=== PATIENT | female | born 1975 | race Caucasian/White ===

== ENCOUNTER 2017-02-18 11:27 | Emergency (ER) | payer MEDICAID ==
[2017-02-18 11:48] VITALS: BP 115/68
[2017-02-18] MEDS ORDERED: Sodium Chloride 0.9% 10 ML Syringe FLUSH PRN (11:59)
--- NOTE | 2017-02-18 12:13 | EDM.PDOC ---
ED HPI GENERAL MEDICAL PROBLEM - General Chief Complaint: Chest Pain Stated Complaint: CHEST PAIN Time Seen by Provider: 02/18/17 11:48 Source of Information: Reports: Patient History Limitations: Reports: No Limitations - History of Present Illness INITIAL COMMENTS - FREE TEXT/NARRATIVE: 41-year-old female presents for evaluation treatment of right-sided chest pain. Patient reports that the chest pain has been present for the last week and a half and is steadily worsening. She reports that it is located on the right side of her chest and radiates to her back. Worse with coughing, sneezing or movement. She reports that it first started when she was sleeping and woke her up from sleep. She states that she has having "a little bit " shortness of breath. She is also feeling more congested. No trauma or injury to the chest that she can think of. She reports associated symptoms of congestion, bilateral ear discomfort, nausea and a cough. She denies any fevers, chills, vomiting, sore throat, lymphadenopathy or abdominal pain. Patient reports that she has tried [id number] naproxen which was helping initially but her symptoms have persisted. Patient also reports that she's been experiencing "muscle cramps " in the lower legs. Had one in the left but mostly in the right leg. Right Chest Pain Score (Numeric/FACES): 5 - Related Data Allergies Allergy/AdvReac Type Severity Reaction Status Date / Time codeine Allergy Unknown Cannot Verified 02/18/17 11:48 Remember Home Meds: Home Meds . [No Known Home Meds] 02/18/17 [History] Past Medical History HEENT History: Reports: Impaired Vision [employer] History: Reports: Neurological History: Reports: Concussion, Head Trauma Psychiatric History: Reports: Hallucinations - Past Surgical History HEENT Surgical History: Reports: Eye Surgery Social & Family History - Family History Family Medical History: Noncontributory - Tobacco Use Smoking Status *Q: Current Every Day Smoker Years of Tobacco use: 22 Packs/Tins Daily: 0.2 - Caffeine Use Caffeine Use: Reports: Coffee, Soda - Alcohol Use Days Per Week of Alcohol Use: 7 Number of Drinks Per Day: 4 Total Drinks Per Week: 28 Date of Last Drink: 02/17/17 - Recreational Drug Use Recreational Drug Use: No Drug Use in Last 12 Months: Yes Recreational Drug Type: Reports: Marijuana/Hashish, Methamphetamine, Ecstasy Recreational Drug Use Frequency: Binges ED ROS GENERAL - Review of Systems Review Of Systems: See Below Constitutional: Denies: Fever, Chills HEENT: Reports: Ear Pain (bilateral), Other (reprots nasal congestion). Denies : Throat Pain Respiratory: Reports: Shortness of Breath ("little bit"), Cough Cardiovascular: Reports: Chest Pain (right sided worse with movement, coughing, sneezing, etc. ). Denies: Edema, Syncope GI/Abdominal: Reports: Nausea. Denies: Abdominal Pain, Vomiting Musculoskeletal: Reports: Leg Pain ("muscle cramps, mostly right leg") Neurological: Denies: Headache, Syncope ED EXAM, GENERAL - Physical Exam Exam: See Below Exam Limited By: No Limitations General Appearance: Alert, WD/WN, No Apparent Distress Ears: Normal External Exam, Normal Canal, Hearing Grossly Normal, Normal TMs Nose: Normal Inspection Throat/Mouth: Normal Inspection, Normal Lips, Normal Gums, Normal Voice, No Airway Compromise, Other (posterior oralpharynx erythema) Neck: Normal Inspection. No: Lymphadenopathy (L), Lymphadenopathy (R) Respiratory/Chest: No Respiratory Distress, Lungs Clear, Normal Breath Sounds, Other (tenderness to palpation of the right chest greatest wihin the right breast around rib 4 and 5) Cardiovascular: Normal Peripheral Pulses, Regular Rate, Rhythm, No Murmur GI/Abdominal: Normal Bowel Sounds, Soft, Non-Tender Extremities: Normal Inspection. No: Alondra's Sign Neurological: Alert, Oriented, Normal Cognition Psychiatric: Normal Affect, Normal Mood Skin Exam: Warm, Dry, Normal Color EKG INTERPRETATION EKG Date: 02/18/17 Time: 11:45 Rhythm: NSR Rate (Beats/Min): 81 [place]: Normal P-Wave: Present QRS: Normal ST-T: Normal QT: Normal EKG Interpretation Comments: NSR at 81 bpm. Consider left atrial hypertrophy. symmetrical peaked t waves- consider hyperkalemia. Occasional PAC. Reviewed by myself and Dr. Bueno. Course - Vital Signs Last Recorded V/S: Last Vital Signs Temp 36.7 C 02/18/17 11:43 Pulse 85 02/18/17 11:43 Resp 13 02/18/17 11:43 BP 115/68 02/18/17 11:43 Pulse Ox 100 02/18/17 11:43 - Orders/Labs/Meds Orders: Active Orders 24 hr Category Date Time Status Peripheral IV Care [RC] . DIRECTED Care 02/18/17 12:00 Active Chest 2V [CR] Stat Exams 02/18/17 11:59 Taken Sodium Chloride 0.9% [Saline Flush] Med 02/18/17 11:59 Active 10 ml FLUSH ASDIRECTED PRN Peripheral IV Insertion Adult [OM.PC] Routine Oth 02/18/17 11:59 Ordered Medication Orders Sodium Chloride (Saline Flush) 10 ml FLUSH ASDIRECTED PRN PRN Reason: Keep Vein Open Last Admin: 02/18/17 12:21 Dose: 10 ml Labs: Laboratory Tests 02/18/17 02/18/17 02/18/17 Range/Units 12:20 12:20 12:20 WBC 6.96 (3.98-10.04) K/mm3 RBC 4.97 (3.98-5.22) M/mm3 Hgb 14.5 (11.2-15.7) gm/L Hct 44.3 (34.1-44.9) % MCV 89.1 (79.4-94.8) fl MCH 29.2 (25.6-32.2) pg MCHC 32.7 (32.2-35.5) g/dl RDW Std Deviation 47.0 H (36.4-46.3) fL Plt Count 284 (182-369) K/mm3 MPV 10.3 (9.4-12.3) fl Neutrophils % (Manual) 72 H (40-60) % Band Neutrophils % 1 (0-10) % Lymphocytes % (Manual) 26 (20-40) % Atypical Lymphs % 0 % Monocytes % (Manual) 1 L (2-10) % Eosinophils % (Manual) 0 L (0.7-5.8) % Basophils % (Manual) 0 L (0.1-1.2) Platelet Estimate Adequate RBC Morph Comment Normal PT 10.2 (8.0-13.0) SECONDS INR 0.94 APTT 24 (22-36) SECONDS D-Dimer, Quantitative 0.37 (0.19-0.59) mg/L Sodium 137 (136-145) mEq/L Potassium 4.5 (3.5-5.1) mEq/L Chloride 103 (98-107) mEq/L Carbon Dioxide 26 (21-32) mEq/L Anion Gap 12.5 (5-15) BUN 23 H (7-18) mg/dL Creatinine 0.8 (0.55-1.02) mg/dL Est Cr Clr Drug Dosing 80.72 mL/min Estimated GFR (MDRD) > 60 (>60) mL/min BUN/Creatinine Ratio 28.8 H (14-18) Glucose 83 (74-106) mg/dL Calcium 8.6 (8.5-10.1) mg/dL Total Bilirubin 0.4 (0.2-1.0) mg/dL AST 26 (15-37) U/L ALT 20 (14-59) U/L Alkaline Phosphatase 80 (46-116) U/L Troponin I < 0.017 (0.00-0.056) ng/mL C-Reactive Protein < 0.2 (<1.0) mg/dL Total Protein 7.4 (6.4-8.2) g/dl Albumin 3.9 (3.4-5.0) g/dl Globulin 3.5 gm/dL Albumin/Globulin Ratio 1.1 (1-2) HCG, Qual (NEGATIVE) 02/18/17 Range/Units 12:20 WBC (3.98-10.04) K/mm3 RBC (3.98-5.22) M/mm3 Hgb (11.2-15.7) gm/L Hct (34.1-44.9) % MCV (79.4-94.8) fl MCH (25.6-32.2) pg MCHC (32.2-35.5) g/dl RDW Std Deviation (36.4-46.3) fL Plt Count (182-369) K/mm3 MPV (9.4-12.3) fl Neutrophils % (Manual) (40-60) % Band Neutrophils % (0-10) % Lymphocytes % (Manual) (20-40) % Atypical Lymphs % % Monocytes % (Manual) (2-10) % Eosinophils % (Manual) (0.7-5.8) % Basophils % (Manual) (0.1-1.2) Platelet Estimate RBC Morph Comment PT (8.0-13.0) SECONDS INR APTT (22-36) SECONDS D-Dimer, Quantitative (0.19-0.59) mg/L Sodium (136-145) mEq/L Potassium (3.5-5.1) mEq/L Chloride (98-107) mEq/L Carbon Dioxide (21-32) mEq/L Anion Gap (5-15) BUN (7-18) mg/dL Creatinine (0.55-1.02) mg/dL Est Cr Clr Drug Dosing mL/min Estimated GFR (MDRD) (>60) mL/min BUN/Creatinine Ratio (14-18) Glucose (74-106) mg/dL Calcium (8.5-10.1) mg/dL Total Bilirubin (0.2-1.0) mg/dL AST (15-37) U/L ALT (14-59) U/L Alkaline Phosphatase (46-116) U/L Troponin I (0.00-0.056) ng/mL C-Reactive Protein (<1.0) mg/dL Total Protein (6.4-8.2) g/dl Albumin (3.4-5.0) g/dl Globulin gm/dL Albumin/Globulin Ratio (1-2) HCG, Qual Negative (NEGATIVE) Meds: Medications Generic Name Dose Route Start Last Admin Trade Name Freq PRN Reason Stop Dose Admin Sodium Chloride 10 ml 02/18/17 11:59 02/18/17 12:21 Saline Flush FLUSH 10 ml ASDIRECTED PRN Administration Keep Vein Open - Radiology Interpretation Free Text/Narrative:: Two-view chest x-ray shows no acute intrathoracic process. - Re-Assessments/Exams Free Text/Narrative Re-Assessment/Exam: 02/18/17 13:51 I reviewed the EKG, chest x-ray and lab results with the patient. I feel it is likely pleurisy causing her discomfort. She also has upper respiratory symptoms of chest congestion. I recommended [id number] Tylenol and Motrin as needed for pain. Rest and fluids. She should follow-up with family medicine is not better in 2 weeks. Discharge instructions documented. Departure - Departure Time of Disposition: 13:52 Disposition: Home, Self-Care 01 Condition: Fair Clinical Impression: Pleurisy Referrals: PCP,None [Primary Care Provider] - Guillermo Rose [Physician] - Forms: ED Department Discharge Additional Instructions: [id number] Tylenol or Motrin as needed for pain relief. Rest. Make sure drinking plenty of fluids. Recommend drinking water in addition to Gatorade or Powerade for the electrolytes. Follow-up with family medicine if your symptoms are not much better within [address] Hook or Amairani Castaneda PA-C. Call [phone] to schedule with either one of these providers. Please return to the ER if your symptoms change or worsen. - My Orders Last 24 Hours: My Active Orders 02/18/17 11:59 Chest 2V [CR] Stat Sodium Chloride 0.9% [Saline Flush] 10 ml FLUSH ASDIRECTED PRN Peripheral IV Insertion Adult [OM.PC] Routine 02/18/17 12:00 Peripheral IV Care [RC] . DIRECTED - Assessment/Plan Last 24 Hours: My Active Orders 02/18/17 11:59 Chest 2V [CR] Stat Sodium Chloride 0.9% [Saline Flush] 10 ml FLUSH ASDIRECTED PRN Peripheral IV Insertion Adult [OM.PC] Routine 02/18/17 12:00 Peripheral IV Care [RC] . DIRECTED
--- NOTE | 2017-02-20 10:07 | CR ---
Chest: Two views of the chest were obtained. Comparison: No prior study. Heart size and mediastinum are within normal limits. Nodule identified within the left upper chest most likely representing costochondral calcification of the first rib. Lungs otherwise are clear. Bony structures are intact. Impression: 1. Nothing acute is appreciated on two-view chest x-ray. Diagnostic code #2
== END 2017-02-18 14:15 | disposition home or self-care (01) ==
LOC: JD.ED 11:27
DX: R09.1 Pleurisy (principal); F17.210 Nicotine dependence, cigarettes, uncomplicated; Z98.890 Other specified postprocedural states; Z88.5 Allergy status to narcotic agent
CPT/HCPCS: 36415; 71020; 80053; 84484; 84703; 85025; 85379; 85610; 85730; 86140; 93005; 99285; J7050; 99284

== ENCOUNTER 2017-06-07 16:01 | Emergency (ER) | payer MEDICAID, OTHER ==
--- NOTE | 2017-06-07 16:38 | EDM.PDOC ---
ED HPI GENERAL MEDICAL PROBLEM - General Chief Complaint: ENT Problem Stated Complaint: DENTAL PAIN Time Seen by Provider: 06/07/17 16:30 Source of Information: Reports: Patient History Limitations: Reports: No Limitations - History of Present Illness INITIAL COMMENTS - FREE TEXT/NARRATIVE: 42-year-old female presents the ED with right samir-facial swelling and dental pain that started 3 days ago. 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 However her dentition of course is deteriorated severely in the last several years. She has multiple teeth that are decayed even with the gingiva margin. Current pain is in the right upper maxillary area radiating up towards her right ear and under her right eye. She can taste a foul almost all the substance coming from the tooth. She's been using ibuprofen 800 mg every 6 hours for pain relief. Recognizes that she's going to need almost all of her teeth removed by an oral surgeon and does not have the finances for this. Onset: Gradual Onset Date: 06/05/17 Duration: Day(s): Location: Reports: Face Quality: Reports: Ache, Throbbing Severity: Moderate Improves with: Reports: Medication (Motrin helps some.) Worsens with: Reports: Other (Chewing or eating) Context: Denies: Activity, Exercise, Lifting, Sick Contact, Trauma, Other Associated Symptoms: Denies: No Other Symptoms, Confusion, Chest Pain, Cough, cough w sputum, Diaphoresis, Fever/Chills, Headaches, Loss of Appetite, Malaise , Shortness of Breath, Syncope Treatments MANAGER CANCER: Reports: NSAIDS (Motrin.) Tooth/Teeth Pain Score (Numeric/FACES): 8 - Related Data Allergies Allergy/AdvReac Type Severity Reaction Status Date / Time codeine Allergy Unknown Cannot Verified 06/07/17 16:08 Remember Home Meds: Home Meds Amoxicillin [Amoxil] 500 mg PO Q8H #30 cap 06/07/17 [Rx] oxyCODONE HCl/Acetaminophen [Percocet 5-325 mg Tablet] 1 - 2 each PO Q4H PRN # 10 tablet 06/07/17 [Rx] Past Medical History HEENT History: Reports: Impaired 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: Neurological History: Reports: Concussion, Head Trauma Psychiatric History: Reports: Hallucinations - Past Surgical History HEENT Surgical History: Reports: Eye Surgery Social & Family History - Family History Family Medical History: Noncontributory - Tobacco Use Smoking Status *Q: Current Every Day Smoker Years of Tobacco use: 22 Packs/Tins Daily: 0.2 - Caffeine Use Caffeine Use: Reports: Coffee, Soda - Alcohol Use Days Per Week of Alcohol Use: 7 Number of Drinks Per Day: 4 Total Drinks Per Week: 28 - Recreational Drug Use Recreational Drug Use: No Drug Use in Last 12 Months: Yes Recreational Drug Type: Reports: Marijuana/Hashish, Methamphetamine, Ecstasy Recreational Drug Use Frequency: Binges - Living Situation & Occupation Living situation: Reports: , Alone Occupation: Unemployed ED ROS ENT - Review of Systems Review Of Systems: See Below (Legally .) Constitutional: Reports: Decreased Appetite. Denies: Fever, Chills, Malaise, Weakness, Fatigue, Weight Loss HEENT: Reports: Ear Pain (Mild right side), Other (Right facial swelling.) Respiratory: Reports: No Symptoms Cardiovascular: Reports: No Symptoms Endocrine: Reports: No Symptoms GI/Abdominal: Reports: No Symptoms : Reports: No Symptoms Musculoskeletal: Reports: No Symptoms Skin: Reports: No Symptoms Neurological: Reports: No Symptoms Psychiatric: Reports: No Symptoms ED EXAM, ENT - Physical Exam Exam: See Below Exam Limited By: No Limitations General Appearance: Alert, WD/WN, No Apparent Distress, Other (Does have obvious swelling over her right maxillary sinus area considered to be mild.) Eye Exam: Bilateral Eye: Normal Inspection, PERRL Ears: Normal TMs Mouth/Throat: Dental Pain (Has multiple dental caries from previous methamphetamine abuse. Several of her teeth are decayed even with the gingiva margin. Culprit tooth at this time appears to be right upper second molar tooth which is surrounded by very swollen gingiva.), Dental Tenderness Head: Facial Swelling, Facial Tenderness (Over the right maxillary facial sinus she has mild swelling. Moderate tenderness in this area.) Respiratory/Chest: No Respiratory Distress, Lungs Clear, Normal Breath Sounds Cardiovascular: Normal Peripheral Pulses, Regular Rate, Rhythm, No Edema, No Gallop, No Murmur Course - Vital Signs Last Recorded V/S: Last Vital Signs Temp 36.4 C 06/07/17 16:08 Pulse 94 06/07/17 16:08 Resp 18 06/07/17 16:08 BP 112/85 06/07/17 16:08 Pulse Ox 98 06/07/17 16:08 - Radiology Interpretation Free Text/Narrative:: 42-year-old female seen in consultation regarding dental infection right upper molar tooth which is decayed even with the gingiva margin. This is starting to cause some swelling of the right samir-face over the maxillary sinus. Treated with Amoxil 500 mg 3 times daily as she is going to have to try to get meds out of the [employer] machine and she has $50 on her debit card. I was going to prescribe clindamycin but it is too expensive. Therefore will use amoxicillin for the best. Also given 10 tablets of Percocet 5/325 milligram tablets one or 2 every 4-6 hours for pain not relieved by Motrin 800 mg every 8 hours as well. She recognizes that she will need most of her teeth removed by oral surgeon as she has multiple badly decayed teeth but at this time does not have the finances to have this done. She will return if right facial swelling worsens over the next 36 hours. Departure - Departure Time of Disposition: 16:36 Disposition: Home, Self-Care 01 Condition: Fair Clinical Impression: Dental abscess - Discharge Information Prescriptions: Amoxicillin [Amoxil] 500 mg PO Q8H #30 cap oxyCODONE HCl/Acetaminophen [Percocet 5-325 mg Tablet] 1 - 2 each PO Q4H PRN # 10 tablet PRN Reason: pain relief. Referrals: PCP,None [Primary Care Provider] - Forms: ED Department Discharge Additional Instructions: Evaluation in the emergency room today in regards to dental infection coming from right upper badly decayed molar tooth that is infected. Dental abscess is showing some evidence of spread to the right side of your face over the maxillary sinus. Treatment is antibiotic amoxicillin 500 mg 3 times daily for the next 10 days. Motrin 600 mg every 6 hours as needed to reduce pain and inflammation or may use 800 mg tablets from the [employer] machine. Percocet tabs 5/325 one or 2 tablets every 6 hours as needed for pain not controlled by ibuprofen alone. No pain should settle down over the next 48 hours once the antibiotic has time to work. Follow-up with dentist of course when able.
[2017-06-07 17:45] VITALS: BP 124/72
== END 2017-06-07 17:05 | disposition home or self-care (01) ==
LOC: JD.ED 16:01
DX: K04.7 Periapical abscess without sinus (principal); F17.210 Nicotine dependence, cigarettes, uncomplicated; Z88.5 Allergy status to narcotic agent
CPT/HCPCS: 99283